=== PATIENT | female | born 1935 | race Caucasian/White ===

== ENCOUNTER 2016-10-27 20:00 | Emergency (ER) | payer MEDICARE, BC ==
[~2016-10-27 20:00] MED LIST: BACTROBAN OINT.22 GM TP; CARVEDILOL25 MG PO; DUONEB DPS3 ML IH; HYDROCODONE 10M10 MG PO; KENALOG LOTION60 M1 TP; KLOR-CON M2020 ME1 PO; LASIX DPS40 MG PO; PLAVIX75 MG PO; SOTALOL80 MG PO; SYMBICORT 16010.2 GM IH; SYNTHROID DP0.025 MG PO; ZITHROMAX250 MG PO
--- NOTE | 2016-11-07 07:08 | ER ---
ADMIT: 10/27/2016 RM/LOC: ER [facility] MR#: [id number] [id number] [place], [place] [id number] MELANIA TORIBIO [facility] [address] Emergency Room Report SEX: F AGE: 81 : 1935 DATE: 10/27/2016 HISTORY OF PRESENT ILLNESS: Patient brought by ambulance with right arm pain. Denies any fall. She does have chronic pain. AICD, CVA, sleep apnea, right kidney nephrectomy, hypertension, and diabetes. PHYSICAL EXAMINATION: VITAL SIGNS: She uses oxygen at night time. She has COPD. Blood pressure 122/59, with a MAP of 74, pulse 71, respirations 16, temp is 97.9, O2 sats 90%, 2 L nasal cannula. She is not having any difficulty breathing at this time. She states she is here because she wanted to make sure it is not her heart. We did do some labs. After the physical examination, we did not find anything abnormal except for a bit of edema in her lower extremities, but she has fibromyalgia, so she does have tenderness throughout her body. LABORATORY DATA: On examination her labs CBC; white count is 6.7, hemoglobin is 11.6, hematocrit is 38.6, platelets 199. Troponin less than 0.015. Glomerular filtration of 82 with an albumin of 3.1, calcium 8.1. Sodium and potassium are normal. Blood sugar when she was checked in and brought in by the ambulance was 107. She is paced. She has an ICD. Chest x-ray within normal limits, only stable cardiomegaly. The patient will be discharged. DIAGNOSES: 1. Right arm pain, nontraumatic. 2. Fibromyalgia. 3. Chronic pain. The patient discharged without any medications or any other procedures done. JAH Miller / Zhen Dash MD / danya JOB #: [id number] CC: Zhen Dash MD, Attending Physician Bashir Gerardo MD, Family Physician
[2017-04-22] MEDS ORDERED: BETAPACE DPS80 MG PO (14:15)
[2017-04-22] MEDS ORDERED: CYMBALTA60 MG PO (14:22)
[2017-04-22] MEDS ORDERED: LYRICA50 MG PO (14:24)
[2017-04-22] MEDS ORDERED: PRAVACHOL20 MG PO (14:24)
[2017-04-22] MEDS ORDERED: INCRUSE ELLI62.5 MCG IH (14:26)
[2017-04-22] MEDS ORDERED: MAALOX DPS30 ML PO (14:27)
[2017-04-22] MEDS ORDERED: PROVENTIL2.5 MG/3 M IH (14:28)
[2017-04-22] MEDS ORDERED: DALIRESP500 MCG PO (14:31)
[2017-04-22] MEDS ORDERED: FLONASE 0.05% D16 GM NS (14:31)
[2017-04-22] MEDS ORDERED: DELTASONE DPS20 MG PO (14:33)
== END 2016-10-27 21:58 | disposition home or self-care (01) ==
LOC: ER 20:00
DX: M79.1 Myalgia (principal); M79.601 Pain in right arm; G89.29 Other chronic pain; E11.9 Type 2 diabetes mellitus without complications; I10 Essential (primary) hypertension; Z86.73 Personal history of transient ischemic attack (TIA), and cerebral infarction without residual deficits; Z95.810 Presence of automatic (implantable) cardiac defibrillator; Z88.6 Allergy status to analgesic agent; Z88.8 Allergy status to other drugs, medicaments and biological substances